=== PATIENT | female | born 1970 | race Caucasian/White ===

== ENCOUNTER → 2016-06-08 | Outpatient (CLI) | payer BC ==
[2014-09-08 15:20] VITALS: BP 139/95
[~2016-06-08] MED LIST: HYDR12.53 PO; LORA10TA3 PO; MONT10TA6 PO; PROVENTIL HFA6.7 GM IH
--- NOTE | 2016-06-08 13:14 | RAD ---
Pelvic ultrasound, 06/08/2016: History: Perimenopausal bleeding Transabdominal and transvaginal scans were obtained. The uterus is within normal limits in size. There is a 4 cm relatively isoechoic mass in the uterus posteriorly most compatible with a uterine fibroid. This causes mild distortion of the central uterine echo complex. The central uterine echo is not thickened. Several prominent nabothian cysts are present in the cervical region, with the largest of these measuring 2 cm. The ovaries were not visualized. No adnexal mass is seen. No free pelvic fluid is evident. IMPRESSION: 1. 4 cm uterine mass compatible with a fibroid. 2. Large nabothian cysts in the cervix. 3. Nonvisualization of the ovaries.
== END | disposition home or self-care (01) ==
LOC: US 11:16
PROVIDERS: ATTEND Family Medicine
DX: N88.8 Other specified noninflammatory disorders of cervix uteri (principal); D25.9 Leiomyoma of uterus, unspecified
CPT/HCPCS: 76856

== ENCOUNTER → 2017-01-23 | Outpatient (CLI) | payer BC ==
[2014-09-08 15:20] VITALS: BP 139/95
--- NOTE | 2017-01-24 11:57 | KCIC ---
DATE: 01/23/2017 EXAM: MAMMO JAMES SCREENING BILATERAL HISTORY: Routine screening COMPARISON: 12/17/2015 The breast parenchyma shows scattered fibroglandular densities. Breast parenchyma level B. FINDINGS: 2-D and 3-D tomosynthesis imaging was performed in CC and MLO projections. No new or enlarging breast densities are seen. Benign-appearing microcalcifications are again noted. No suspicious microcalcifications have developed. IMPRESSION: Stable mammograms without evidence of malignancy. BI-RADS CATEGORY: 2 BENIGN FINDING(S) RECOMMENDED FOLLOW-UP: 12M 12 MONTH FOLLOW-UP PQRS compliance statement: Patient information was entered into a reminder system with a target due date for the next mammogram. Mammography is a sensitive method for finding small breast cancers, but it does not detect them all and is not a substitute for careful clinical examination. A negative mammogram does not negate a clinically suspicious finding and should not result in delay in biopsying a clinically suspicious abnormality. "Our facility is accredited by the [employer] Mammography [employer]."
== END | disposition home or self-care (01) ==
LOC: KCIC MAMMO 09:49
PROVIDERS: ATTEND Family Medicine
DX: Z12.31 Encounter for screening mammogram for malignant neoplasm of breast (principal)
CPT/HCPCS: 77063; G0202; 77067

== ENCOUNTER → 2018-07-17 | Outpatient (CLI) | payer BC, OTHER ==
[2014-09-08 15:20] VITALS: BP 139/95
[~2018-07-17] MED LIST changes: +ALBU2.5V8 IH; -HYDR12.53 PO; +HYDR12.575 PO; -PROVENTIL HFA6.7 GM IH
--- NOTE | 2018-07-17 17:29 | KCIC ---
Bilateral digital screening mammograms with 3-D tomosynthesis: Reason for examination: Routine screening. Comparison is made to previous studies dated 01/23/2017 and 12/17/2015. Bilateral mammograms in CC and oblique projections were obtained with 2-D imaging and 3-D tomosynthesis imaging on a Siemens Inspiration unit and reviewed on the workstation. Interpretation was made with the benefit of CAD. The skin and nipples show no abnormalities. No abnormal axillary lymph nodes are seen. The breast parenchyma shows scattered fatty and fibroglandular density. (Breast density: Category B.) There are no dominant masses, suspicious calcifications or architectural distortion. Impression: No evidence of malignancy. Recommend routine screening. BI-RAD Category 1: Negative. "Our facility is accredited by the [employer] Mammography [employer]." This patient's information has been entered into a reminder system for the patient to be notified with the results of her examination and a target date for the next mammogram. Electronically signed by: Jillian Ramirez MD (07/17/2018 5:26 PM) [id number]
== END | disposition home or self-care (01) ==
LOC: KCIC MAMMO 12:35
PROVIDERS: ATTEND Family Medicine
DX: Z12.31 Encounter for screening mammogram for malignant neoplasm of breast (principal)
CPT/HCPCS: 77063; 77067

== ENCOUNTER → 2019-10-08 | Outpatient (CLI) | payer OTHER ==
[2014-09-08 15:20] VITALS: BP 139/95
[~2019-10-08] MED LIST changes: -ALBU2.5V8 IH; +MONT10TA49 PO; -MONT10TA6 PO; +PROVENTIL HFA6.7 GM IH
--- NOTE | 2019-10-09 09:41 | KCIC ---
Bilateral digital screening mammograms with 3-D tomosynthesis: Reason for examination: Routine screening. Comparison is made to previous studies dated back to 12/17/2015. Bilateral mammograms in CC and oblique projections were obtained with 2-D imaging and 3-D tomosynthesis imaging on a Siemens Inspiration unit and reviewed on the workstation. Interpretation was made with the benefit of CAD. The skin and nipples show no abnormalities. No abnormal axillary lymph nodes are seen. The breast parenchyma shows scattered fatty and fibroglandular density. (Breast density: Category B.) There are small nodular parenchymal densities consistent with intramammary lymph nodes in the upper outer quadrant of the right breast. There are no new dominant masses, suspicious calcifications or architectural distortion. Benign calcifications are present. Impression: No evidence of malignancy. Recommend routine screening. BI-RAD Category 2: Benign. "Our facility is accredited by the [employer] Mammography [employer]." This patient's information has been entered into a reminder system for the patient to be notified with the results of her examination and a target date for the next mammogram. Electronically signed by: Jillian Ramirez MD (10/09/2019 9:38 AM) [id number]
== END | disposition home or self-care (01) ==
LOC: KCIC MAMMO 08:54
PROVIDERS: ATTEND Family Medicine
DX: Z12.31 Encounter for screening mammogram for malignant neoplasm of breast (principal); N64.89 Other specified disorders of breast
CPT/HCPCS: 77063; 77067

== ENCOUNTER → 2020-11-24 | Outpatient (CLI) | payer BC ==
[2014-09-08 15:20] VITALS: BP 139/95
--- NOTE | 2020-11-24 11:52 | KCIC ---
Bilateral digital screening mammograms with 3-D tomosynthesis: Reason for examination: Routine screening. Comparison is made to previous studies dated back to 10/23/2014. Bilateral mammograms in CC and oblique projections were obtained with 2-D imaging and 3-D tomosynthes is imaging on a Siemens Inspiration unit and reviewed on the workstation. Interpretation was made anival mendoza the benefit of CAD. The skin and nipples show no abnormalities. No abnormal axillary lymph nodes are seen. The breast par enchyma shows scattered fatty and fibroglandular density. (Breast density: Category B.) There continu es to be a small nodule consistent with an intramammary lymph node at the 9:30 position posteriorly i n the right breast. There are no new dominant masses, suspicious calcifications or architectural dist ortion. A few benign calcifications are again seen. Impression: No evidence of malignancy. Recommend routine screening. BI-RAD Category 2: Benign. "Our facility is accredited by the [employer] Mammography Program." This patient's information has been entered into a reminder system for the patient to be notified wit h the results of her examination and a target date for the next mammogram. Electronically signed by: Jillian Ramirez MD (11/24/2020 11:50 AM) [id number]
== END ==
LOC: KCIC MAMMO 10:56
PROVIDERS: ATTEND Family Medicine
DX: Z12.31 Encounter for screening mammogram for malignant neoplasm of breast (principal)
CPT/HCPCS: 77063; 77067

== ENCOUNTER → 2021-04-27 | Outpatient (CLI) | payer BC ==
[2014-09-08 15:20] VITALS: BP 139/95
--- NOTE | 2021-04-27 08:25 | RAD ---
EXAM: Abdomen sonogram. HISTORY: Elevated liver function laboratory values. TECHNIQUE: Sonographic imaging of the abdomen was performed. COMPARISON: None. FINDINGS: There is hepatic steatosis. No focal hepatic lesion is seen. The gallbladder is unremarkabl e. The common bile duct is normal in caliber. The kidneys are normal in size. There is no solid or cy stic renal lesion. There is no hydronephrosis. The pancreas, spleen, aorta and inferior vena cava are unremarkable. IMPRESSION: 1. Hepatic steatosis. 2. No acute sonographic finding. Electronically signed by: Sandra Hightower MD (04/27/2021 8:22 AM) [id number]
== END ==
LOC: US 07:45
PROVIDERS: ATTEND Family Medicine
DX: K76.0 Fatty (change of) liver, not elsewhere classified (principal); R74.01 Elevation of levels of liver transaminase levels
CPT/HCPCS: 76700